=== PATIENT | female | born 1995 | race African-American/Black ===

== ENCOUNTER 2020-11-04 03:43 | Emergency (ER) | payer MEDICAID ==
[~2020-11-04] VITALS: Ht 167.6 cm; Wt 100.0 kg
[~2020-11-04 03:43] MED LIST: PREN-88 PO
[2020-11-04] MEDS ORDERED: ACETAMINOPHEN 325MG TABLET PO ONE (05:30)
[2020-11-04] MEDS ORDERED: SODIUM CHLORIDE 0.9% 1,000 ML IV ONE (06:00)
[2020-11-04 06:16] LABS: BASOPHILS % 0.4 % (0.0-2.0); EOSINOPHILS % 2.5 % (0.0-5.0); HEMATOCRIT. 36.3 % (36.0-48.0); HEMOGLOBIN. 12.4 g/dL (12.0-16.0); LYMPHOCYTES % 20.2 % (20.0-50.0); MEAN CORPUSCULAR HEMOGLOBIN 32.8 pg (28.0-32.0); MEAN CORPUSCULAR VOLUME 95.6 fL (81.0-99.0); MEAN PLATELET VOLUME 7.1 fl (7.4-10.4); MONOCYTES % 8.1 % (2.0-8.0); NEUTROPHILS % 68.8 % (40.0-76.0); PLATELET 448 x1000/uL (130-400); RED CELL DISTRIBUTION WIDTH 13.5 % (11.6-14.6)
[2020-11-04 06:19] LABS: CHLORIDE 107 mEq/L (98-107)
[2020-11-04 08:20] VITALS: BP 103/70
== END 2020-11-04 08:45 | disposition home or self-care (01) ==
LOC: ER 03:43
DX: B34.9 Viral infection, unspecified (principal); Z20.822 Contact with and (suspected) exposure to COVID-19
CPT/HCPCS: 36415; 71045; 80053; 81025; 85025; 87070; 87430; 96360; 99284; C9803; J7030; U0003; U0005

== ENCOUNTER 2020-11-30 01:33 | Emergency (ER) | payer MEDICAID ==
[~2020-11-30] VITALS: Ht 160 cm; Wt 91.0 kg
[2020-11-30] MEDS ORDERED: HYDROCODONE/ACETAMINOPHEN 5/325MG TABLET PO ONE (03:00)
[2020-11-30] MEDS ORDERED: HYDR-4001 MT (03:48)
[2020-11-30 04:15] VITALS: BP 128/63
== END 2020-11-30 04:17 | disposition home or self-care (01) ==
LOC: ER 01:33
DX: S62.325A Displaced fracture of shaft of fourth metacarpal bone, left hand, initial encounter for closed fracture (principal); S62.617A Displaced fracture of proximal phalanx of left little finger, initial encounter for closed fracture; Z79.899 Other long term (current) drug therapy; Y04.0XXA Assault by unarmed brawl or fight, initial encounter; Y93.89 Activity, other specified; Y92.89 Other specified places as the place of occurrence of the external cause; Y99.8 Other external cause status
CPT/HCPCS: 29125; 29130; 73030; 73130; 99284